=== PATIENT | male | born 1970 | race Caucasian/White ===

== ENCOUNTER 2016-09-20 12:36 | Observation (INO) | payer SELFPAY ==
[~2016-09-20] VITALS: Ht 185.4 cm; Wt 108.1 kg
[2016-09-22] MEDS ORDERED: GLUCOPHAGE-DPS500 MG PO (09:59)
[2016-09-22] MEDS ORDERED: ASPIRIN EC81 MG PO (09:59)
[2016-09-22] MEDS ORDERED: ZESTRIL DPS2.5 MG PO (09:59)
[2016-09-22] MEDS ORDERED: ACETAMINOPHEN325 MG PO (10:00)
[2016-09-22] MEDS ORDERED: MOBIC DPS7.5 MG PO (10:00)
[2016-09-22] MEDS ORDERED: ZOLOFT DPS50 MG PO (10:00)
[2016-09-22] MEDS ORDERED: VALIUM-DPS5 MG PO (10:01)
[2016-09-22] MEDS ORDERED: DESYREL-DPS50 MG PO (10:01)
[2016-09-22] MEDS ORDERED: ULTRAM DPS50 MG PO (10:01)
--- NOTE | 2016-09-23 00:11 | ER ---
ADMIT: 09/20/2016 RM/LOC: 416 [facility] MR#: [id number] [address] [address] SABR[address]ACELESTINA [address] [place] [address] Emergency Room Report SEX: M AGE: 46 : 1970 DATE: 09/20/2016 The patient's regular physician is For chief complaint, history of present illness, past medical history, medications, allergies, review of systems, including physical exam, please see my T-sheet. HISTORY OF PRESENT ILLNESS: The patient is a 46-year-old, white male, who presents to the emergency room via 911 with altered level of consciousness and some confusion. He did have an emesis prior to arrival. He was found by EMS in his car after he had vomited. He is uncertain, has no recollection of what happened prior to that. The patient does have a history of diabetes and states that he took his medications that he was supposed to this morning. He reports a blood sugar of 60 via EMS. He reports a normal blood sugar of somewhere around 120, nothing new or different. However, the patient states that he has been having cold symptoms just kind of nonspecific, not feeling well for the last several days. The patient later on in the visit does recall calling his son, going on telling him that he was going to the ER that he did not feel well. Vital signs are stable. Physical exam is relatively unremarkable. The patient had no bowel or bladder control. The patient was initially evaluated by the PA student, Gina. Laboratory evaluation here in the Emergency Department reveals an elevated WBC count of 21 with a left shift. There is an elevated lactic acid of 2.7. Outside of that, everything really is negative. Chemistries are normal. Troponins negative. EtOH is negative. Drug screen is negative. Urine is negative. Head CT is negative. EKG is sinus rhythm without any evidence of ectopy. EMERGENCY ROOM COURSE: The patient did kind of start to recall some memory of earlier events of today. He is agreeable to admission. He now is able to ADMIT: 09/20/2016 RM/LOC: 416 [facility] MR#: [id number] [address] [address] [address] [place] [address] Emergency Room Report SEX: M AGE: 46 : 1970 tell us that back in 2003, he did have a grand mal seizure when he was living in [place]. They suspect it was related to alcohol abuse. He reports he has been clean from alcohol for several years now. It is concerning that maybe the patient has had a history of current alcohol withdrawal or a possible seizure. Dr. Weems was consulted. We will plan to admit to the hospital. The patient has remained stable here. He is agreeable to be admitted. IMPRESSION: 1. Altered level consciousness that has resolved. 2. Diabetes mellitus. 3. Lactic acidosis. The patient is in stable condition at the time of Admission. MAJO Huddleston / Jose Miguel Abbott MD / modl JOB #: [id number] CC: Mini Weems MD, Attending Physician Mini Weems MD, Family Physician
--- NOTE | 2016-09-23 07:51 | HP ---
ADMIT: 09/20/2016 RM/LOC: 416 [facility] MR#: [id number] [id number] [facility] [address] [place], [place] [address] TE BENNETT H [address] [place], [place] [id number] History and Physical SEX: M AGE: 46 : 1970 DATE OF SERVICE: CHIEF COMPLAINT: Mental status change with unresponsive episode. HISTORY OF PRESENT ILLNESS: Mr. Bennett is a 46-year-old gentleman who has a diagnosis of diabetes type 2 which is typically well controlled. He also had a prior seizure in 2003 that he reports by history. He said that for the last few days, he "has not felt right." He has a difficult time explaining it, said he has felt more tired than usual and last evening had an episode where he felt like it was difficult to focus his eyes. He also has had some trouble concentrating. In any case, he said today he was feeling sick, nauseated, sweaty. He said he was driving and he pulled over to call his uncle. That man told him to stay in his car and Te said call 911. The patient remembers the squad coming. He said he does not really recall biting his tongue but he had blood in his mouth and sore laceration on his tongue. When the squad came, they checked his blood sugar and it was 60. He was given glucose in the field. In the emergency room, he was initially confused but was able to recall details later. When I see him 3 to 4 hours after the event, he said he does feel like he can remember most of the event but he is uncertain about some of the details. The patient said he had one documented grand mal seizure in 2003 when he lived in [place]. He said at that time, he was a "heavy drinker." He does not know for certain if he was withdrawing or if it was because he was drinking or what the cause was. In any case, he tells me he had a CAT scan and MRI of the brain and he had an EEG. He said he was told everything was normal and he was taken off antiseizure medicine after one month. He denies any seizure activity since then. He does report that if he is tired, his eyes will "flicker." He denies gustatory or visual hallucinations. Denies auditory hallucinations. He is treated at [facility] for his diabetes and hypertension, then he is treated at [facility] for depression. He also sees Dr. Loomis for chronic low back pain and had a steroid injection in his back in April of 2016. PAST MEDICAL HISTORY: As described above. Positive for diabetes diagnosed a couple of years ago. He takes metformin and glipizide. He was also started on lisinopril for blood pressure. He follows at [facility] and he was quite vague about the reason. He said he is treated for depression. SOCIAL HISTORY: The patient denies alcohol since 2007. He reports previous heavy drinking. He also reports previous concussions and at least a couple of episodes in which he had loss of consciousness, but that has been more than 8 years ago. He denies any street drugs or other drug use that is not prescribed. He denies smoking. He is . His ex- came up to bring his daughter in to see him. He has a grade school aged daughter. He is unemployed currently. He blames that on his back pain. FAMILY HISTORY: Was not obtained. ADMIT: 09/20/2016 RM/LOC: 416 [facility] MR#: [id number] [address] [address] TE BENNETT [address] [place] [address] History and Physical SEX: M AGE: 46 : 1970 REVIEW OF SYSTEMS: GENERAL: He said he has felt more tired recently and "off." He is not able to really explain what he means by that, but he told me over and over that he has felt like he cannot focus or concentrate very well. ENT: Denies headaches. He said it is sometimes difficult to focus his vision. Especially when he is tired, he feels his vision "wiggles or flickers." He tells me it is not his eyelid that flickers but that it is difficult to focus in general. He denies sore throat. CARDIOPULMONARY: Benign. GASTROINTESTINAL: Positive for vomiting today but otherwise benign. GENITOURINARY: Benign. He had no bowel or bladder incontinence today. MUSCULOSKELETAL: He complains of low back pain. He said he had been getting along okay but currently complains that his low back hurts since this episode today. NEUROPSYCHIATRIC: He gave only very vague answers about depression. He tells me he cannot recall his medicines but thought he was on sertraline and trazodone and that was confirmed by a phone call to the pharmacy. He denies recently stopping or starting any medicines. PHYSICAL EXAMINATION: GENERAL: The patient is sitting up in bed. He is alert. He is oriented to person, place, and time. HEENT: He has no obvious head trauma. He has a 2 cm laceration that is fairly jagged on the right side of his tongue. It is not bleeding. Tongue extends in the midline. Cranial nerves II through XII are intact. He does have one or two beats of right lateral nystagmus on lateral gaze. NECK: There is no neck stiffness. No adenopathy. No thyromegaly. LUNGS: Clear. HEART: Regular. ABDOMEN: His belly is nontender. EXTREMITIES: Normal strength throughout. NEUROLOGIC: Reflexes are equal and normal bilaterally. It is difficult to assess gait or Romberg because he complains that his low back hurts and he is shuffling his gait a little bit because of that. I did not attempt Romberg's because he said it hurts too bad to straighten his back all the way. He is tender in the paraspinous muscles of the lumbar spine. There is no pain directly over the spinous processes. LABORATORY AND X-RAY DATA: His electrolytes are completely normal, creatinine 1.2. Glucose in the ER was 152 and in the field was 60. He had an ABG on arrival which was normal. Liver enzymes are all within normal limits with the exception of low phosphorus of 1.4. Magnesium was 2.5. Cardiac enzymes were drawn, include CK and troponin which were all normal. Drug screen showed negative alcohol and negative for any drugs of abuse. It was also negative for benzodiazepines. His white count is elevated at 21.5, hemoglobin 15.4, platelet count 223. The white count differential revealed 79% segs, 7% bands, and 8% lymphocytes. Lactic acid was 2.7 and 4 hours later was 2.5. His procalcitonin was normal at less than 0.05. Influenza test was negative. Urinalysis showed 1+ protein, trace blood, was otherwise negative. CT scan of ADMIT: 09/20/2016 RM/LOC: 416 [facility] MR#: [id number] [address] [address] TE BENNETT [address] [place] [address] History and Physical SEX: M AGE: 46 : 1970 the head was read as negative. No sinus abnormalities. No intracranial abnormalities. He also had a chest x-ray that is normal. ASSESSMENT: 1. Unresponsive episode and mental status changes suspicious for seizure. 2. Diabetes type 2. 3. Mental health diagnosis of depression. PLAN: We need to confirm his actual med list. The patient is not able to recall his medicines and the list he gave me was incomplete and different than the one reported by the Pharmacy. The Pharmacy's list, however, includes the medicines that he says he does not recognize. At this point, the clinics where he received care, [facility] and [facility], are closed, so we will check with them in the morning. I am going to admit him on telemetry observation and use seizure precautions. I will treat him with Valium for his low back spasm and use Ativan if needed if he has any obvious seizure activity. We will do Neurology consult tomorrow. I also consulted Social Work for financial assistance because the patient does not have insurance and is currently not employed. Regarding his diabetes, we will monitor his sugars. I will not order any insulin at this point and I will hold off on his metformin until we confirm dosing of his medicines. Mini Weems MD/ lavern JOB #: [id number] CC: Mini Weems, Attending Physician Mini Weems, Family Physician
== END 2016-09-21 10:29 | disposition home or self-care (01) ==
LOC: ER 12:36 → 4PCU 16:40
PROVIDERS: ADMIT Family Medicine
DX: R41.82 Altered mental status, unspecified (principal); E11.9 Type 2 diabetes mellitus without complications; F32.9 Major depressive disorder, single episode, unspecified; I10 Essential (primary) hypertension; F10.21 Alcohol dependence, in remission; Z79.84 Long term (current) use of oral hypoglycemic drugs

== ENCOUNTER → 2016-10-24 | Outpatient (CLI) | payer OTHER ==
[~2016-10-24] MED LIST: ACETAMINOPHEN325 MG PO; ASPIRIN EC81 MG PO; DESYREL-DPS50 MG PO; GLUCOPHAGE-DPS500 MG PO; MOBIC DPS7.5 MG PO; ULTRAM DPS50 MG PO; VALIUM-DPS5 MG PO; ZESTRIL DPS2.5 MG PO; ZOLOFT DPS50 MG PO
== END | disposition home or self-care (01) ==
LOC: PTH.S 10-08 08:30
DX: E11.9 Type 2 diabetes mellitus without complications (principal)

== ENCOUNTER 2016-11-17 07:53 | Day surgery (SDC) | payer OTHER ==
[~2016-11-17] VITALS: Ht 185.4 cm; Wt 104.5 kg
--- NOTE | 2016-11-18 08:05 | OR ---
ADMIT: 11/17/2016 RM/LOC: [facility] MR#: [id number] [address] [address] CELESTINA BENNETT [address] [place] [address] Operative/Delivery Room Report SEX: M AGE: 46 : 1970 SURGERY DATE: 11/17/2016 SURGEON: Soren Loomis MD PREPROCEDURAL DIAGNOSES: 1. Lumbar spondylosis. 2. Lumbago. POSTPROCEDURAL DIAGNOSES: 1. Lumbar spondylosis. 2. Lumbago. PROCEDURE PERFORMED: Right-sided lumbar facet injections at L3-L4, L4-L5, and L5-S1 levels. INDICATIONS FOR PROCEDURE: ANESTHESIA: Local without sedation. ESTIMATED BLOOD LOSS: Zero. COMPLICATIONS: None immediately evident. DESCRIPTION OF PROCEDURE: After the patient was seen in the preoperative area, vitals signs were taken. Prior to the procedure, the risks, benefits, and alternative therapies were discussed at length. Patient consent was obtained and updated. The patient was taken to the fluoroscopy suite and placed on the fluoroscopy table in the prone position. Pressure points were padded to comfort, monitors applied, and a timeout performed. The lumbosacral area was prepped sterilely using ChloraPrep. C-arm fluoroscopy was then brought in to identify facet joints at L3-L4, L4-L5, and L5-S1 on the right side. Lidocaine 1% plain approximately 1 mL was used to anesthetize the skin and underlying subcutaneous tissue at each level. At each level, a 3.5- inch 22-gauge spinal needle was used. The needle was then advanced to make contact with the superior articular facet at each level. The needle was then ADMIT: 11/17/2016 RM/LOC: [facility] MR#: [id number] [address] [address] CELESTINA BENNETT [address] [place] [address] Operative/Delivery Room Report SEX: M AGE: 46 : 1970 walked off and placed into a joint at each level. Isovue-300 0.5 mL was instilled at each level, which showed excellent intra-articular spread. The patient did receive 0.5 mL of 0.25% Marcaine with approximately 80 mg of Depo- Medrol. The patient had reproduction of his typical pain at each level. The patient tolerated the procedure well. The patient was brought to PACU where he recovered nicely without any complications. PLAN: The patient was examined after 20 minutes and had 80% reduction of pain. Range of motion, mainly extension, from 10 degree to 20 degree of extension. Discharge instructions were given, followup scheduled. The patient was discharged home with a driver manager. Soren Loomis MD/ lavern JOB #: [id number] CC: Soren Loomis, Attending Physician . [facility], Family Physician
== END 2016-11-17 10:17 | disposition home or self-care (01) ==
LOC: SSS 07:53
PROC: 3E0U3BZ Introduction of Anesthetic Agent into Joints, Percutaneous Approach (ICD-10-PCS; principal; 2016-11-17)
PROC: 3E0U33Z Introduction of Anti-inflammatory into Joints, Percutaneous Approach (ICD-10-PCS; principal; 2016-11-17)
PROC: BR16YZZ Fluoroscopy of Lumbar Facet Joint(s) using Other Contrast (ICD-10-PCS; principal; 2016-11-17)
DX: M47.817 Spondylosis without myelopathy or radiculopathy, lumbosacral region (principal); Z79.82 Long term (current) use of aspirin; Z79.891 Long term (current) use of opiate analgesic; Z79.899 Other long term (current) drug therapy